=== PATIENT | male | born 1960 | race Caucasian/White ===

== ENCOUNTER 2024-03-02 21:28 | Inpatient (IN) ==
--- NOTE | 2024-03-02 22:26 | DR.HTN ---
HPI Time Seen Time Seen by Provider: 03/02/24 22:25 Primary Care Physician Primary Care Physician: SURESH NUNO (HERNANDEZ) Complaints Chief Complaint:: PT SENT BY PCP FOR ELEVATED BP AND CONTROL OF ALCOHOL DETOX SYMPTOMS. PT STATES HE DOUBLED BP MEDS AT HOME [employer] AND HAS NOT BEEN ABLE TO GET BP DOWN. PT ALERT ORIENTED AMB. NO SIGNS OF DISTRESS NOTED AT THIS TIME. Self Treatment fo Chief Complaint: BP MEDICATIONS COVID-19 Coronavirus risk:travel/contact w/high risk person: No Has patient experienced Coronavirus symptoms: No Source History Provided: Patient Mode of Arrival Mode of Arrival: Ambulatory Timing Onset of Chief Complaint: 03/02/24 Severity What was the maximum recorded B/P?: 214/110 Context Treatment of HTN Prior to Arrival: Taking meds as prescribed PMH PMH Past Medical History: Yes Past Medical History: Anxiety, Diabetes, Dyslipidemia, GERD and Hypertension Past Surgical History: Yes Surgical History: Cholecystectomy and Ortho Surgery Family History History of Family Medical Conditions: Yes Family Medical History: Hypertension Social History Alcohol Use: Heavy and DAILY Do you use any recreational Drugs:: No Lives With: Spouse Lives Where: Home Travel Risk Coronavirus risk:travel/contact w/high risk person: No Has patient experienced Coronavirus symptoms: No Infectious screening Have you traveled outside the country in the last 6 months?: No Isolation: Standard PE Vital Signs Vitals: Vital Signs Temperature 98.4 F Pulse Rate 80 Pulse Rate 83 Pulse Rate 83 Pulse Rate 83 Pulse Rate 80 Pulse Rate 76 Pulse Rate 72 Pulse Rate 74 Pulse Rate 72 Pulse Rate 73 Pulse Rate 77 Pulse Rate 76 Pulse Rate 77 Respiratory Rate 21 Respiratory Rate 18 Respiratory Rate 16 Respiratory Rate 19 Respiratory Rate 17 Respiratory Rate 16 Respiratory Rate 20 Respiratory Rate 18 Respiratory Rate 16 Respiratory Rate 15 Respiratory Rate 19 Respiratory Rate 21 Respiratory Rate 16 Blood Pressure 150/65 Blood Pressure 156/69 Blood Pressure 156/69 Blood Pressure 156/69 Blood Pressure 159/70 Blood Pressure 159/70 Blood Pressure 150/65 Blood Pressure 184/81 Blood Pressure 189/83 Blood Pressure 192/68 Blood Pressure 209/91 Blood Pressure 219/106 Blood Pressure 204/88 Blood Pressure 182/80 Blood Pressure 207/90 O2 Sat by Pulse Oximetry 99 O2 Sat by Pulse Oximetry 98 O2 Sat by Pulse Oximetry 97 O2 Sat by Pulse Oximetry 97 O2 Sat by Pulse Oximetry 98 O2 Sat by Pulse Oximetry 99 O2 Sat by Pulse Oximetry 98 O2 Sat by Pulse Oximetry 97 O2 Sat by Pulse Oximetry 98 O2 Sat by Pulse Oximetry 97 O2 Sat by Pulse Oximetry 97 O2 Sat by Pulse Oximetry 97 O2 Sat by Pulse Oximetry 95 ROR Labs Reviewed 03/02/24 21:50 03/02/24 21:50 Laboratory: WBC 5.3 X10^3/uL (3.6-10.0) 03/02/24 21:50 RBC 3.43 X10^6/uL (4.7-6.0) L 03/02/24 21:50 Hgb 11.7 g/dL (13.5-18.0) L 03/02/24 21:50 Hct 34.1 % (42.0-54.0) L 03/02/24 21:50 MCV 99.4 fL (80.0-100.0) 03/02/24 21:50 MCH 34.2 pg (27.0-34.0) H 03/02/24 21:50 MCHC 34.4 g/dL (33.0-35.0) 03/02/24 21:50 RDW 14.9 % (11.6-16.5) 03/02/24 21:50 Plt Count 163 X10^3/uL (150.0-450.0) 03/02/24 21:50 MPV 8.1 fL (7.4-11.0) 03/02/24 21:50 Neut % (Auto) 53.3 % (42.0-75.0) 03/02/24 21:50 Lymph % (Auto) 36.0 % (21.0-51.0) 03/02/24 21:50 [place] % (Auto) 5.5 % (0.0-13.0) 03/02/24 21:50 Eos % (Auto) 3.9 % (0.9-2.9) H 03/02/24 21:50 Baso % (Auto) 1.3 % (0.2-1.0) H 03/02/24 21:50 Neut # (Auto) 2.8 x10^3/uL (2.2-4.8) 03/02/24 21:50 Lymph # (Auto) 1.9 X10^3/uL (1.3-2.9) 03/02/24 21:50 [place] # (Auto) 0.3 x10^3/uL (0.3-0.8) 03/02/24 21:50 Eos # (Auto) 0.2 x10^3/uL (0.0-0.2) 03/02/24 21:50 Baso # (Auto) 0.1 X10^3/uL (0.0-0.1) 03/02/24 21:50 Absolute Nucleated RBC 0.4 /100WBC 03/02/24 21:50 Sodium 138 mmol/L (136-145) 03/02/24 21:50 Corrected Sodium 140 mmol/L (136-145) 03/02/24 21:50 Potassium 4.5 mmol/L (3.5-5.1) 03/02/24 21:50 Chloride 103 mmol/L (98-107) 03/02/24 21:50 Carbon Dioxide 24.3 mmol/L (21-32) 03/02/24 21:50 BUN 33 mg/dL (7-18) H 03/02/24 21:50 Creatinine 1.62 mg/dL (0.70-1.30) H 03/02/24 21:50 Est GFR (MDRD) Af Amer 55 (>60) L 03/02/24 21:50 Est GFR (MDRD) Non-Af 46 (>60) L 03/02/24 21:50 Glucose 187 mg/dL (65-99) H 03/02/24 21:50 Calcium 8.9 mg/dL (8.5-10.1) 03/02/24 21:50 Corrected Calcium TNP 03/02/24 21:50 Magnesium 1.9 mg/dL (2.0-2.9) L 03/02/24 21:50 Total Bilirubin 0.60 mg/dL (0.2-1.0) 03/02/24 21:50 AST 79 Units/L (15-37) H 03/02/24 21:50 ALT 102 Units/L (12-78) H 03/02/24 21:50 Alkaline Phosphatase 70 Units/L (46-116) 03/02/24 21:50 Total Protein 7.8 g/dL (6.4-8.2) 03/02/24 21:50 Albumin 4.0 g/dL (3.4-5.0) 03/02/24 21:50 Globulin 3.8 g/dL (2.5-4.5) 03/02/24 21:50 Albumin/Globulin Ratio 1.1 Ratio (1.1-2.1) 03/02/24 21:50 Ethyl Alcohol mg/dL < 3 mg/dL (0-19.9) 03/02/24 21:50 Opioid Opioid Risk Tool Age (Keyur box if 16-45): Yes History of Preadolescent Sexual Abuse: No Total: 1 Total Score Risk Category: Low Risk Copyright: Lance RAMIREZ predicting aberrant behaviors Discharge Plan Discharge Plan Patient Disposition: 01 HOME, SELF-CARE Condition: Stable Orders to Discharge Patient Discharge Orders: Transfer (Routine); Ordered 03/03/24 Ordered By: RAYMUNDO MILNER
[2024-03-02 22:34] LABS: ALANINE AMINOTRANSFERASE 102 Units/L (12-78); ALKALINE PHOSPHATASE 70 Units/L (46-116); ASPARTATE AMINO TRANSFERASE 79 Units/L (15-37); BASOPHILS # (AUTO) 0.1 X10^3/uL (0.0-0.1); BASOPHILS % (AUTO) 1.3 % (0.2-1.0); BLOOD UREA NITROGEN 33 mg/dL (7-18); CALCIUM 8.9 mg/dL (8.5-10.1); CARBON DIOXIDE 24.3 mmol/L (21-32); CHLORIDE 103 mmol/L (98-107); COR NA(FOR HYPERGLY) 140 mmol/L (136-145); CREATININE 1.62 mg/dL (0.70-1.30); EOSINOPHILS # (AUTO) 0.2 x10^3/uL (0.0-0.2); EOSINOPHILS % (AUTO) 3.9 % (0.9-2.9); GLUCOSE 187 mg/dL (65-99); HEMATOCRIT 34.1 % (42.0-54.0); HEMOGLOBIN 11.7 g/dL (13.5-18.0); LYMPHOCYTES # (AUTO) 1.9 X10^3/uL (1.3-2.9); MEAN CORPUSCULAR HEMOGLOBIN 34.2 pg (27.0-34.0); MEAN CORPUSCULAR HGB CONC 34.4 g/dL (33.0-35.0); MEAN CORPUSCULAR VOLUME 99.4 fL (80.0-100.0); MEAN PLATELET VOLUME 8.1 fL (7.4-11.0); MONOCYTES # (AUTO) 0.3 x10^3/uL (0.3-0.8); MONOCYTES % (AUTO) 5.5 % (0.0-13.0); NEUTROPHILS # (AUTO) 2.8 x10^3/uL (2.2-4.8); NEUTROPHILS % (AUTO) 53.3 % (42.0-75.0); PLATELET COUNT 163 X10^3/uL (150.0-450.0); POTASSIUM 4.5 mmol/L (3.5-5.1); RED BLOOD COUNT 3.43 X10^6/uL (4.7-6.0); RED CELL DISTRIBUTION WIDTH 14.9 % (11.6-16.5); SODIUM 138 mmol/L (136-145); TOTAL PROTEIN 7.8 g/dL (6.4-8.2); WHITE BLOOD COUNT 5.3 X10^3/uL (3.6-10.0); eGFR NON BLACK RACES 46 (>60)
[2024-03-02] MEDS: APRESOLINE INJ 20 MG VIAL IVP ONE ×2 (22:38→23:05)
[2024-03-02 22:41] LABS: BLOOD ALCOHOL < 3 mg/dL (0-19.9); MAGNESIUM 1.9 mg/dL (2.0-2.9)
[2024-03-02] MEDS: NS 1,000 ML IV 1,000 ML with MAGNESIUM SULFATE 50% INJ VIAL 1 G, MVI INJ (ADULT) 10 ML,... IV SCH (23:31)
[2024-03-02] MEDS: LIBRIUM PO ONE (23:54)
[2024-03-03 01:34] VITALS: BMI 27.1
[2024-03-03 04:30] LABS: BILIRUBIN,URINE NEGATIVE (NEGATIVE); BLOOD/HEMOGLOBIN,URINE NEGATIVE (NEGATIVE); GLUCOSE, URINE NEGATIVE (NEGATIVE); KETONES,URINE NEGATIVE (NEGATIVE); LEUKOCYTE ESTERASE ,URINE NEGATIVE (NEGATIVE); NITRITES,URINE NEGATIVE (NEGATIVE); PROTEIN,URINE NEGATIVE (NEGATIVE); UROBILINOGEN,URINE NORMAL (NORMAL)
[2024-03-03 04:34] LABS: APPEARANCE,URINE CLEAR (CLEAR); COLOR,URINE YELLOW (YELLOW)
[2024-03-03] MEDS: LIBRIUM PO SCH (05:18)
[2024-03-03 05:33] LABS: EOSINOPHILS # (AUTO) 0.3 x10^3/uL (0.0-0.2); EOSINOPHILS % (AUTO) 5.6 % (0.9-2.9); HEMATOCRIT 32.5 % (42.0-54.0); HEMOGLOBIN 11.2 g/dL (13.5-18.0); LYMPHOCYTES # (AUTO) 1.9 X10^3/uL (1.3-2.9); LYMPHOCYTES % (AUTO) 38.9 % (21.0-51.0); MEAN CORPUSCULAR HEMOGLOBIN 34.2 pg (27.0-34.0); MEAN CORPUSCULAR HGB CONC 34.3 g/dL (33.0-35.0); MEAN CORPUSCULAR VOLUME 99.5 fL (80.0-100.0); MEAN PLATELET VOLUME 8.4 fL (7.4-11.0); MONOCYTES # (AUTO) 0.3 x10^3/uL (0.3-0.8); MONOCYTES % (AUTO) 5.6 % (0.0-13.0); NEUTROPHILS # (AUTO) 2.4 x10^3/uL (2.2-4.8); NEUTROPHILS % (AUTO) 48.9 % (42.0-75.0); PLATELET COUNT 141 X10^3/uL (150.0-450.0); RED BLOOD COUNT 3.27 X10^6/uL (4.7-6.0); RED CELL DISTRIBUTION WIDTH 14.8 % (11.6-16.5); WHITE BLOOD COUNT 4.9 X10^3/uL (3.6-10.0)
[2024-03-03 05:54] LABS: ALANINE AMINOTRANSFERASE 90 Units/L (12-78); ALBUMIN 3.6 g/dL (3.4-5.0); ALKALINE PHOSPHATASE 59 Units/L (46-116); ASPARTATE AMINO TRANSFERASE 61 Units/L (15-37); BLOOD UREA NITROGEN 28 mg/dL (7-18); CALCIUM 8.7 mg/dL (8.5-10.1); CARBON DIOXIDE 26.2 mmol/L (21-32); CHLORIDE 104 mmol/L (98-107); COR NA(FOR HYPERGLY) 140 mmol/L (136-145); CREATININE 1.26 mg/dL (0.70-1.30); GLUCOSE 141 mg/dL (65-99); POTASSIUM 4.4 mmol/L (3.5-5.1); SODIUM 139 mmol/L (136-145); TOTAL PROTEIN 7.2 g/dL (6.4-8.2); eGFR NON BLACK RACES > 60 (>60)
[2024-03-03] MEDS ORDERED: MILK OF MAGNESIA PO PRN (08:59)
[2024-03-03] MEDS ORDERED: KAOPECTATE (NEW FORMULA) PO PRN (08:59)
[2024-03-03] MEDS ORDERED: MAALOX or MYLANTA PO PRN (08:59)
[2024-03-03] MEDS ORDERED: LIBRIUM PO PRN (08:59)
[2024-03-03] MEDS ORDERED: PHENOBARBITAL SODIUM INJ 65 MG VIAL IM PRN (08:59)
[2024-03-03] MEDS ORDERED: MOTRIN TAB 800 MG PO PRN (08:59)
[2024-03-03] MEDS ORDERED: THIAMINE HCL INJ IM SCH (09:00)
[2024-03-03 09:36] LABS: BASOPHILS # (AUTO) 0.1 X10^3/uL (0.0-0.1); BASOPHILS % (AUTO) 1.1 % (0.2-1.0); EOSINOPHILS # (AUTO) 0.3 x10^3/uL (0.0-0.2); HEMATOCRIT 35.6 % (42.0-54.0); HEMOGLOBIN 12.1 g/dL (13.5-18.0); LYMPHOCYTES # (AUTO) 1.5 X10^3/uL (1.3-2.9); LYMPHOCYTES % (AUTO) 30.3 % (21.0-51.0); MEAN CORPUSCULAR HEMOGLOBIN 34.2 pg (27.0-34.0); MEAN CORPUSCULAR VOLUME 100.7 fL (80.0-100.0); MONOCYTES # (AUTO) 0.2 x10^3/uL (0.3-0.8); MONOCYTES % (AUTO) 4.9 % (0.0-13.0); NEUTROPHILS # (AUTO) 2.8 x10^3/uL (2.2-4.8); NEUTROPHILS % (AUTO) 57.7 % (42.0-75.0); PLATELET COUNT 157 X10^3/uL (150.0-450.0); RED BLOOD COUNT 3.54 X10^6/uL (4.7-6.0); RED CELL DISTRIBUTION WIDTH 15.1 % (11.6-16.5); WHITE BLOOD COUNT 4.8 X10^3/uL (3.6-10.0)
[2024-03-03] MEDS: MAGNESIUM SULFATE 1 GRAM/100 mL PREMIX 1 G/100 ML BAG IV SCH (10:18)
[2024-03-03] MEDS: THIAMINE HCL INJ IVP SCH (10:18)
[2024-03-03] MEDS: PHENOBARBITAL TAB 30 MG (32.4MG) PO SCH (10:18)
[2024-03-03] MEDS: LOVENOX INJ 40 MG SYR SC SCH (10:19)
--- NOTE | 2024-03-03 10:37 | RAD ---
EXAMINATION:CHEST, PA/LAT ADULTHISTORY:SOB; .COMPARISON STUDY:11/19/2023TECHNIQUE:Two views of the chest are submitted for interpretation.FINDINGS:. The heart size is normal. The mediastinal structures are unremarkable. The lungs are clear. Costophrenic recesses are sharp. There are degenerative changes in the thoracic spine. There is no pneumothorax.IMPRESSION:NO ACUTE PROCESS.THIS IS AN ELECTRONICALLY VERIFIED FINAL REPORT03/03/2024 10:33 AM - Electronically signed by Amilcar Kraus MD
[2024-03-03] MEDS ORDERED: LEXAPRO ONE (12:13)
[2024-03-03] MEDS: LEXAPRO PO SCH (12:19)
[2024-03-03] MEDS: BENICAR PO SCH (12:19)
[2024-03-03] MEDS: NovoLIN R (or HumuLIN R) SUBCUT PRN (12:20)
--- NOTE | 2024-03-03 15:15 | DR.H&P ---
H&P History & Physical for Day of: H&P Date: 03/03/24 Chief Complaint Chief Complaint: Alcohol detoxification History of Present Illness History of Present Illness: This is a pleasant 64-year-old white male who comes in for alcohol detoxification. He has a long history of alcoholism as well as major depression. He has been drinking hard and heavy off and on for the last number of years. He has not been able to quit on his own at this time. His blood pressure has been up with systolic in the 200s. His nurse practitioner, Hood Longoria, called me in [place], [place]. She asked if I would mind admitting him, and I told her I would not. Given his blood pressure is slightly elevated, I said to her that we need to have him get to the emergency department to make sure that we can get this under control. Then, we will continue to do alcohol detox via the alcohol detox protocol. The patient does have a history of major depression, hypertension, anxiety, hypercholesteremia, osteoarthritis, acid reflux, and diabetes mellitus type 2. Past Medical History Past Medical History: Anxiety, Arthritis, Depression, Diabetes, Dyslipidemia, GERD and Hypertension Past Surgical History Surgical History: Cholecystectomy and Ortho Surgery Family History Family Medical History: Hypertension Social History Does patient currently use any type of tobacco product: No Type of Tobacco Use: None Does any household member use tobacco: No Alcohol Use: Heavy and DAILY Drug Use: None Medications Home Medications: Home Medications Medication Instructions Recorded Confirmed Type alprazolam 0.5 mg tablet (Xanax) 0.5 mg PO BID PRN 11/19/23 03/02/24 History lansoprazole 30 mg capsule,delayed 30 mg PO QDAY 11/19/23 03/02/24 History release metformin 500 mg tablet,extended 500 mg PO BID 11/19/23 03/02/24 History release 24 hr atorvastatin 20 mg tablet 20 mg PO QPM 01/25/24 03/02/24 History diclofenac sodium 75 mg 75 mg PO BID 01/25/24 03/02/24 History tablet,delayed release escitalopram oxalate 10 mg tablet 10 mg PO QDAY 01/25/24 03/02/24 History montelukast 10 mg tablet 10 mg PO QPM 01/25/24 03/02/24 History olmesartan 40 mg tablet 40 mg PO QDAY 04/27/24 06/03/24 History Allergies Allergies Allergy/AdvReac Type Severity Reaction Status Date / Time No Known Allergies Allergy Verified 03/02/24 22:05 Labs 03/03/24 09:22 03/03/24 04:05 Labs: Laboratory WBC 4.8 X10^3/uL (3.6-10.0) 03/03/24 09:22 RBC 3.54 X10^6/uL (4.7-6.0) L 03/03/24 09:22 Hgb 12.1 g/dL (13.5-18.0) L 03/03/24 09:22 Hct 35.6 % (42.0-54.0) L 03/03/24 09:22 MCV 100.7 fL (80.0-100.0) H 03/03/24 09:22 MCH 34.2 pg (27.0-34.0) H 03/03/24 09:22 MCHC 34.0 g/dL (33.0-35.0) 03/03/24 09:22 RDW 15.1 % (11.6-16.5) 03/03/24 09:22 Plt Count 157 X10^3/uL (150.0-450.0) 03/03/24 09:22 MPV 8.0 fL (7.4-11.0) 03/03/24 09:22 Neut % (Auto) 57.7 % (42.0-75.0) 03/03/24 09:22 Lymph % (Auto) 30.3 % (21.0-51.0) 03/03/24 09:22 [place] % (Auto) 4.9 % (0.0-13.0) 03/03/24 09:22 Eos % (Auto) 6.0 % (0.9-2.9) H 03/03/24 09:22 Baso % (Auto) 1.1 % (0.2-1.0) H 03/03/24 09:22 Neut # (Auto) 2.8 x10^3/uL (2.2-4.8) 03/03/24 09:22 Lymph # (Auto) 1.5 X10^3/uL (1.3-2.9) 03/03/24 09:22 [place] # (Auto) 0.2 x10^3/uL (0.3-0.8) L 03/03/24 09:22 Eos # (Auto) 0.3 x10^3/uL (0.0-0.2) H 03/03/24 09:22 Baso # (Auto) 0.1 X10^3/uL (0.0-0.1) 03/03/24 09:22 Absolute Nucleated RBC 0.1 /100WBC 03/03/24 09:22 Sodium 139 mmol/L (136-145) 03/03/24 04:05 Corrected Sodium 140 mmol/L (136-145) 03/03/24 04:05 Potassium 4.4 mmol/L (3.5-5.1) 03/03/24 04:05 Chloride 104 mmol/L (98-107) 03/03/24 04:05 Carbon Dioxide 26.2 mmol/L (21-32) 03/03/24 04:05 BUN 28 mg/dL (7-18) H 03/03/24 04:05 Creatinine 1.26 mg/dL (0.70-1.30) 03/03/24 04:05 Est GFR (MDRD) Af Amer > 60 (>60) 03/03/24 04:05 Est GFR (MDRD) Non-Af > 60 (>60) 03/03/24 04:05 Glucose 141 mg/dL (65-99) H 03/03/24 04:05 POC Glucose (mg/dL) 183 mg/dL (65-99) H 03/03/24 11:47 Calcium 8.7 mg/dL (8.5-10.1) 03/03/24 04:05 Corrected Calcium TNP 03/03/24 04:05 Magnesium 2.0 mg/dL (2.0-2.9) 03/03/24 04:05 Total Bilirubin 0.70 mg/dL (0.2-1.0) 03/03/24 04:05 AST 61 Units/L (15-37) H 03/03/24 04:05 ALT 90 Units/L (12-78) H 03/03/24 04:05 Alkaline Phosphatase 59 Units/L (46-116) 03/03/24 04:05 Total Protein 7.2 g/dL (6.4-8.2) 03/03/24 04:05 Albumin 3.6 g/dL (3.4-5.0) 03/03/24 04:05 Globulin 3.6 g/dL (2.5-4.5) 03/03/24 04:05 Albumin/Globulin Ratio 1.0 Ratio (1.1-2.1) L 03/03/24 04:05 Specimen Type Clean catch urine 03/03/24 04:08 Urine Color Yellow (YELLOW) 03/03/24 04:08 Urine Appearance Clear (CLEAR) 03/03/24 04:08 Urine pH 6.0 (5.0 - 8.0) 03/03/24 04:08 Ur Specific [place] 1.015 (1.000-1.030) 03/03/24 04:08 Urine Protein Negative (NEGATIVE) 03/03/24 04:08 Urine Glucose (UA) Negative (NEGATIVE) 03/03/24 04:08 Urine Ketones Negative (NEGATIVE) 03/03/24 04:08 Urine Blood Negative (NEGATIVE) 03/03/24 04:08 Urine Nitrite Negative (NEGATIVE) 03/03/24 04:08 Urine Bilirubin Negative (NEGATIVE) 03/03/24 04:08 Urine Urobilinogen Normal (NORMAL) 03/03/24 04:08 Ur Leukocyte Esterase Negative (NEGATIVE) 03/03/24 04:08 Ethyl Alcohol mg/dL < 3 mg/dL (0-19.9) 03/02/24 21:50 Review of Systems Constitutional: Weakness and Malaise Eyes: No Symptoms Reported ENT: No Symptoms Reported Respiratory: No Symptoms Reported Cardiovascular: No Symptoms Reported Gastrointestinal: Nausea; denies Diarrhea, Melena or Hematochezia Genitourinary: No Symptoms Reported Musculoskeletal: No Symptoms Reported Skin: No Symptoms Reported Neurological: Weakness Physical Exam Vital Signs: Vital Signs Temperature 97.6 F Pulse Rate 74 Pulse Rate 78 Pulse Rate 100 Blood Pressure 133/64 Blood Pressure 183/89 Blood Pressure 142/63 O2 Sat by Pulse Oximetry 97 O2 Sat by Pulse Oximetry 98 O2 Sat by Pulse Oximetry 97 Oriented: Normal, Time, Person and Place Eyes: Normal Ear: Normal Nose: Normal Throat: Normal Respiratory: Clear Throughout Cardiovascular: Normal : Normal Auscultation: Bowel Sounds: Normal Palpation: Normal Tenderness: Normal Skin: Normal Musculoskeletal: Normal Psychiatric: Anxiety and Depression Mood Description: Calm, Depressed, Flat, Sad and Anxious Affect: Anxious, Depressed and Flat Speech Pattern: Clear and Appropriate Assessment/Plan (1) Alcohol use disorder: Status: Acute Plan: Ethanol detox protocol. (2) Hypertension: Qualifiers: Hypertension type: primary hypertension Qualified Code(s): I10 - Essential (primary) hypertension Status: Acute Plan: Resume olmesartan 40 mg 1 p.o. daily. Monitor daily blood pressures. (3) Major depression: Status: Acute Plan: Continue E citalopram 10 mg 1 p.o. daily. I will see about getting the Viibryd ordered if we carry it here at the hospital pharmacy. (4) Nausea: Status: Acute Plan: Zofran as needed. (5) Diabetes mellitus type 2 in nonobese: Status: Acute Plan: Sliding scale regular insulin per protocol. We will hold off on the metformin since he is having nausea and some diarrhea now. (6) Dehydration: Status: Acute Plan: IV hydration. Review H&P Reviewed: Yes Patient was examined?: Yes
[2024-03-03] MEDS ORDERED: GLUCOPHAGE PO SCH (17:00)
[2024-03-03] MEDS: SNACK - Diabetic Appropriate PO SCH (20:10)
[2024-03-03] MEDS: SINGULAIR TAB 10 MG PO SCH (20:20)
[2024-03-03] MEDS: LIPITOR TAB 20 MG PO SCH (20:21)
[2024-03-03] MEDS ORDERED: THIAMINE HCL INJ ONE (20:26)
[2024-03-03] MEDS: AMBIEN PO SCH (20:32)
[2024-03-04] MEDS ORDERED: LEXAPRO ONE (08:39)
[2024-03-04] MEDS: PREVACID PO SCH (09:02)
[2024-03-04 09:38] LABS: BASOPHILS % (AUTO) 1.2 % (0.2-1.0); EOSINOPHILS # (AUTO) 0.2 x10^3/uL (0.0-0.2); EOSINOPHILS % (AUTO) 5.5 % (0.9-2.9); HEMATOCRIT 33.9 % (42.0-54.0); HEMOGLOBIN 11.5 g/dL (13.5-18.0); LYMPHOCYTES # (AUTO) 1.1 X10^3/uL (1.3-2.9); LYMPHOCYTES % (AUTO) 30.3 % (21.0-51.0); MEAN CORPUSCULAR HEMOGLOBIN 34.3 pg (27.0-34.0); MEAN CORPUSCULAR HGB CONC 34.1 g/dL (33.0-35.0); MEAN CORPUSCULAR VOLUME 100.7 fL (80.0-100.0); MEAN PLATELET VOLUME 7.8 fL (7.4-11.0); MONOCYTES # (AUTO) 0.2 x10^3/uL (0.3-0.8); MONOCYTES % (AUTO) 5.3 % (0.0-13.0); NEUTROPHILS # (AUTO) 2.1 x10^3/uL (2.2-4.8); NEUTROPHILS % (AUTO) 57.7 % (42.0-75.0); PLATELET COUNT 131 X10^3/uL (150.0-450.0); RED BLOOD COUNT 3.37 X10^6/uL (4.7-6.0); RED CELL DISTRIBUTION WIDTH 15.2 % (11.6-16.5); WHITE BLOOD COUNT 3.7 X10^3/uL (3.6-10.0)
[2024-03-04 10:13] LABS: ALANINE AMINOTRANSFERASE 104 Units/L (12-78); ALBUMIN 3.7 g/dL (3.4-5.0); ALKALINE PHOSPHATASE 56 Units/L (46-116); ASPARTATE AMINO TRANSFERASE 99 Units/L (15-37); BLOOD UREA NITROGEN 18 mg/dL (7-18); CALCIUM 8.8 mg/dL (8.5-10.1); CARBON DIOXIDE 27.9 mmol/L (21-32); CHLORIDE 104 mmol/L (98-107); COR NA(FOR HYPERGLY) 140 mmol/L (136-145); CREATININE 1.28 mg/dL (0.70-1.30); GLUCOSE 233 mg/dL (65-99); POTASSIUM 4.9 mmol/L (3.5-5.1); SODIUM 137 mmol/L (136-145); TOTAL PROTEIN 7.2 g/dL (6.4-8.2); eGFR NON BLACK RACES 60 (>60)
--- NOTE | 2024-03-04 16:34 | PCM.PROG ---
Progress Note Progress Note for Day of Date of Exam: 03/04/24 Subjective Subjective: The patient is resting comfortably this morning. He has had no acute problems since yesterday morning and none overnight. His labs look fairly well at this point. I see his LFTs are elevated. His blood pressure is much better and is 139/65 this afternoon. He is afebrile at this time and is tolerating the alcohol detox protocol at this time. He has no tremors and no shaking or no evidence of heart DTs this afternoon. Past Medical Family Social History Allergies: Allergies No Known Allergies Allergy (Verified 03/02/24 22:05) Review of Systems ROS: No change since H&P Vital Signs and I&O's Vital Signs: Vital Signs Temperature 98.5 F Temperature 97.7 F Pulse Rate 70 Pulse Rate 68 Respiratory Rate 18 Respiratory Rate 18 Blood Pressure 139/65 Blood Pressure 149/69 O2 Sat by Pulse Oximetry 97 O2 Sat by Pulse Oximetry 98 Intake and Output: Intake & Output 03/02/24 03/03/24 03/04/24 03/05/24 11:59 11:59 11:59 11:59 Intake Total 282 / 282 2088 Balance 282 / 282 2088 Physical Exam Oriented: Normal, Time, Person and Place Eyes: Normal Ear: Normal Nose: Normal Throat: Normal Respiratory: Normal Cardiovascular: Normal : Normal Auscultation: Bowel Sounds: Normal Tenderness: Normal Skin: Normal Musculoskeletal: Normal Psychiatric: Anxiety and Depression Mood Description: Calm, Depressed, Flat, Sad and Anxious Affect: Anxious, Depressed and Flat Speech Pattern: Clear and Appropriate Laboratory and Diagnostics 03/04/24 09:10 03/04/24 09:10 Labs: Laboratory WBC 3.7 X10^3/uL (3.6-10.0) 03/04/24 09:10 RBC 3.37 X10^6/uL (4.7-6.0) L 03/04/24 09:10 Hgb 11.5 g/dL (13.5-18.0) L 03/04/24 09:10 Hct 33.9 % (42.0-54.0) L 03/04/24 09:10 MCV 100.7 fL (80.0-100.0) H 03/04/24 09:10 MCH 34.3 pg (27.0-34.0) H 03/04/24 09:10 MCHC 34.1 g/dL (33.0-35.0) 03/04/24 09:10 RDW 15.2 % (11.6-16.5) 03/04/24 09:10 Plt Count 131 X10^3/uL (150.0-450.0) L 03/04/24 09:10 MPV 7.8 fL (7.4-11.0) 03/04/24 09:10 Neut % (Auto) 57.7 % (42.0-75.0) 03/04/24 09:10 Lymph % (Auto) 30.3 % (21.0-51.0) 03/04/24 09:10 [place] % (Auto) 5.3 % (0.0-13.0) 03/04/24 09:10 Eos % (Auto) 5.5 % (0.9-2.9) H 03/04/24 09:10 Baso % (Auto) 1.2 % (0.2-1.0) H 03/04/24 09:10 Neut # (Auto) 2.1 x10^3/uL (2.2-4.8) L 03/04/24 09:10 Lymph # (Auto) 1.1 X10^3/uL (1.3-2.9) L 03/04/24 09:10 [place] # (Auto) 0.2 x10^3/uL (0.3-0.8) L 03/04/24 09:10 Eos # (Auto) 0.2 x10^3/uL (0.0-0.2) 03/04/24 09:10 Baso # (Auto) 0.0 X10^3/uL (0.0-0.1) 03/04/24 09:10 Absolute Nucleated RBC 0.0 /100WBC 03/04/24 09:10 Sodium 137 mmol/L (136-145) 03/04/24 09:10 Corrected Sodium 140 mmol/L (136-145) 03/04/24 09:10 Potassium 4.9 mmol/L (3.5-5.1) 03/04/24 09:10 Chloride 104 mmol/L (98-107) 03/04/24 09:10 Carbon Dioxide 27.9 mmol/L (21-32) 03/04/24 09:10 BUN 18 mg/dL (7-18) 03/04/24 09:10 Creatinine 1.28 mg/dL (0.70-1.30) 03/04/24 09:10 Est GFR (MDRD) Af Amer > 60 (>60) 03/04/24 09:10 Est GFR (MDRD) Non-Af 60 (>60) 03/04/24 09:10 Glucose 233 mg/dL (65-99) H 03/04/24 09:10 POC Glucose (mg/dL) 202 mg/dL (65-99) H 03/04/24 16:14 Calcium 8.8 mg/dL (8.5-10.1) 03/04/24 09:10 Corrected Calcium TNP 03/04/24 09:10 Magnesium 2.0 mg/dL (2.0-2.9) 03/03/24 04:05 Total Bilirubin 0.60 mg/dL (0.2-1.0) 03/04/24 09:10 AST 99 Units/L (15-37) H 03/04/24 09:10 ALT 104 Units/L (12-78) H 03/04/24 09:10 Alkaline Phosphatase 56 Units/L (46-116) 03/04/24 09:10 Total Protein 7.2 g/dL (6.4-8.2) 03/04/24 09:10 Albumin 3.7 g/dL (3.4-5.0) 03/04/24 09:10 Globulin 3.5 g/dL (2.5-4.5) 03/04/24 09:10 Albumin/Globulin Ratio 1.1 Ratio (1.1-2.1) 03/04/24 09:10 Specimen Type Clean catch urine 03/03/24 04:08 Urine Color Yellow (YELLOW) 03/03/24 04:08 Urine Appearance Clear (CLEAR) 03/03/24 04:08 Urine pH 6.0 (5.0 - 8.0) 03/03/24 04:08 Ur Specific [place] 1.015 (1.000-1.030) 03/03/24 04:08 Urine Protein Negative (NEGATIVE) 03/03/24 04:08 Urine Glucose (UA) Negative (NEGATIVE) 03/03/24 04:08 Urine Ketones Negative (NEGATIVE) 03/03/24 04:08 Urine Blood Negative (NEGATIVE) 03/03/24 04:08 Urine Nitrite Negative (NEGATIVE) 03/03/24 04:08 Urine Bilirubin Negative (NEGATIVE) 03/03/24 04:08 Urine Urobilinogen Normal (NORMAL) 03/03/24 04:08 Ur Leukocyte Esterase Negative (NEGATIVE) 03/03/24 04:08 Ethyl Alcohol mg/dL < 3 mg/dL (0-19.9) 03/02/24 21:50 Radiology Reviewed: Yes Plan (1) Alcohol use disorder: Status: Acute Narrative Support Text: Improving. Plan: Ethanol detox protocol. (2) Hypertension: Status: Acute Qualifiers: Hypertension type: primary hypertension Qualified Code(s): I10 - Essential (primary) hypertension Narrative Support Text: Much improved. Plan: Resume olmesartan 40 mg 1 p.o. daily. Monitor daily blood pressures. (3) Major depression: Status: Acute Plan: Continue escitalopram 10 mg 1 p.o. daily. I will see about getting the Viibryd ordered if we carry it here at the hospital pharmacy. (4) Nausea: Status: Acute Plan: Zofran as needed. (5) Diabetes mellitus type 2 in nonobese: Status: Acute Plan: Sliding scale regular insulin per protocol. We will hold off on the metformin since he is having nausea and some diarrhea now. (6) Dehydration: Status: Acute Plan: IV hydration.
[2024-03-04] MEDS: ALPRAZOLAM ODT PO PRN (21:25)
[2024-03-05 05:39] LABS: BASOPHILS % (AUTO) 0.8 % (0.2-1.0); EOSINOPHILS # (AUTO) 0.2 x10^3/uL (0.0-0.2); HEMATOCRIT 31.6 % (42.0-54.0); HEMOGLOBIN 10.8 g/dL (13.5-18.0); LYMPHOCYTES # (AUTO) 1.6 X10^3/uL (1.3-2.9); LYMPHOCYTES % (AUTO) 36.6 % (21.0-51.0); MEAN CORPUSCULAR HEMOGLOBIN 34.3 pg (27.0-34.0); MEAN CORPUSCULAR HGB CONC 34.2 g/dL (33.0-35.0); MEAN CORPUSCULAR VOLUME 100.3 fL (80.0-100.0); MEAN PLATELET VOLUME 8.5 fL (7.4-11.0); MONOCYTES # (AUTO) 0.2 x10^3/uL (0.3-0.8); MONOCYTES % (AUTO) 5.6 % (0.0-13.0); NEUTROPHILS # (AUTO) 2.2 x10^3/uL (2.2-4.8); PLATELET COUNT 132 X10^3/uL (150.0-450.0); RED BLOOD COUNT 3.15 X10^6/uL (4.7-6.0); RED CELL DISTRIBUTION WIDTH 14.8 % (11.6-16.5); WHITE BLOOD COUNT 4.3 X10^3/uL (3.6-10.0)
[2024-03-05 05:49] LABS: ALANINE AMINOTRANSFERASE 101 Units/L (12-78); ALBUMIN 3.3 g/dL (3.4-5.0); ALKALINE PHOSPHATASE 55 Units/L (46-116); ASPARTATE AMINO TRANSFERASE 83 Units/L (15-37); BLOOD UREA NITROGEN 22 mg/dL (7-18); CALCIUM 8.3 mg/dL (8.5-10.1); CARBON DIOXIDE 28.3 mmol/L (21-32); CHLORIDE 105 mmol/L (98-107); COR CA(FOR HYPOALB) 8.9 mg/dL (8.5-10.1); COR NA(FOR HYPERGLY) 140 mmol/L (136-145); CREATININE 1.08 mg/dL (0.70-1.30); GLUCOSE 182 mg/dL (65-99); POTASSIUM 4.3 mmol/L (3.5-5.1); SODIUM 138 mmol/L (136-145); TOTAL PROTEIN 6.6 g/dL (6.4-8.2); eGFR NON BLACK RACES > 60 (>60)
[2024-03-05] MEDS ORDERED: LEXAPRO ONE (08:54)
[2024-03-05] MEDS: MAGNESIUM SULFATE 50% INJ VIAL ONE (14:18)
[2024-03-05] MEDS: NS 1,000 ML IV 1,000 ML ONE (14:19)
[2024-03-05] MEDS: MVI INJ (ADULT) IV ONE (14:19)
--- NOTE | 2024-03-05 21:27 | PCM.PROG ---
Progress Note Progress Note for Day of Date of Exam: 03/05/24 Subjective Subjective: The patient is resting comfortably this morning. He has had no acute problems since yesterday morning and none overnight. His labs look fairly well at this point. The patient's LFTs are continuing to normalize. They are still slightly elevated but have improved again since yesterday. His hemoglobin is down to 10.8; however, some of this is hemodilution. He states that he is not having too much shaking and jitteriness and has no nausea, vomiting, or diarrhea. He is currently on his fourth day, so we will continue to watch him and probably go ahead and try and discharge him tomorrow, as he should be out of the danger zone regarding alcoholic delirium tremens. Past Medical Family Social History Allergies: Allergies No Known Allergies Allergy (Verified 03/02/24 22:05) Review of Systems ROS: No change since H&P Vital Signs and I&O's Vital Signs: Vital Signs Temperature 98.1 F Temperature 97.7 F Pulse Rate 67 Pulse Rate 67 Respiratory Rate 22 Respiratory Rate 20 Blood Pressure 153/69 Blood Pressure 168/73 O2 Sat by Pulse Oximetry 95 O2 Sat by Pulse Oximetry 99 Intake and Output: Intake & Output 03/03/24 03/04/24 03/05/24 03/06/24 11:59 11:59 11:59 11:59 Intake Total 282 / 282 2088 3286 / 3286 1301 / 1301 Balance 282 / 282 2088 3286 / 3286 1301 / 1301 Physical Exam Oriented: Normal, Time, Person and Place Eyes: Normal Ear: Normal Nose: Normal Throat: Normal Respiratory: Normal Cardiovascular: Normal : Normal Auscultation: Bowel Sounds: Normal Tenderness: Normal Skin: Normal Musculoskeletal: Normal Psychiatric: Anxiety and Depression Mood Description: Calm, Depressed, Flat, Sad and Anxious Affect: Anxious, Depressed and Flat Speech Pattern: Clear and Appropriate Laboratory and Diagnostics 03/05/24 04:45 03/05/24 04:45 Labs: Laboratory WBC 4.3 X10^3/uL (3.6-10.0) 03/05/24 04:45 RBC 3.15 X10^6/uL (4.7-6.0) L 03/05/24 04:45 Hgb 10.8 g/dL (13.5-18.0) L 03/05/24 04:45 Hct 31.6 % (42.0-54.0) L 03/05/24 04:45 MCV 100.3 fL (80.0-100.0) H 03/05/24 04:45 MCH 34.3 pg (27.0-34.0) H 03/05/24 04:45 MCHC 34.2 g/dL (33.0-35.0) 03/05/24 04:45 RDW 14.8 % (11.6-16.5) 03/05/24 04:45 Plt Count 132 X10^3/uL (150.0-450.0) L 03/05/24 04:45 MPV 8.5 fL (7.4-11.0) 03/05/24 04:45 Neut % (Auto) 52.0 % (42.0-75.0) 03/05/24 04:45 Lymph % (Auto) 36.6 % (21.0-51.0) 03/05/24 04:45 [place] % (Auto) 5.6 % (0.0-13.0) 03/05/24 04:45 Eos % (Auto) 5.0 % (0.9-2.9) H 03/05/24 04:45 Baso % (Auto) 0.8 % (0.2-1.0) 03/05/24 04:45 Neut # (Auto) 2.2 x10^3/uL (2.2-4.8) 03/05/24 04:45 Lymph # (Auto) 1.6 X10^3/uL (1.3-2.9) 03/05/24 04:45 [place] # (Auto) 0.2 x10^3/uL (0.3-0.8) L 03/05/24 04:45 Eos # (Auto) 0.2 x10^3/uL (0.0-0.2) 03/05/24 04:45 Baso # (Auto) 0.0 X10^3/uL (0.0-0.1) 03/05/24 04:45 Absolute Nucleated RBC 0.1 /100WBC 03/05/24 04:45 Sodium 138 mmol/L (136-145) 03/05/24 04:45 Corrected Sodium 140 mmol/L (136-145) 03/05/24 04:45 Potassium 4.3 mmol/L (3.5-5.1) 03/05/24 04:45 Chloride 105 mmol/L (98-107) 03/05/24 04:45 Carbon Dioxide 28.3 mmol/L (21-32) 03/05/24 04:45 BUN 22 mg/dL (7-18) H 03/05/24 04:45 Creatinine 1.08 mg/dL (0.70-1.30) 03/05/24 04:45 Est GFR (MDRD) Af Amer > 60 (>60) 03/05/24 04:45 Est GFR (MDRD) Non-Af > 60 (>60) 03/05/24 04:45 Glucose 182 mg/dL (65-99) H 03/05/24 04:45 POC Glucose (mg/dL) 224 mg/dL (65-99) H 03/05/24 19:25 Calcium 8.3 mg/dL (8.5-10.1) L 03/05/24 04:45 Corrected Calcium 8.9 mg/dL (8.5-10.1) 03/05/24 04:45 Magnesium 2.3 mg/dL (2.0-2.9) 03/05/24 04:45 Total Bilirubin 0.30 mg/dL (0.2-1.0) 03/05/24 04:45 AST 83 Units/L (15-37) H 03/05/24 04:45 ALT 101 Units/L (12-78) H 03/05/24 04:45 Alkaline Phosphatase 55 Units/L (46-116) 03/05/24 04:45 Total Protein 6.6 g/dL (6.4-8.2) 03/05/24 04:45 Albumin 3.3 g/dL (3.4-5.0) L 03/05/24 04:45 Globulin 3.3 g/dL (2.5-4.5) 03/05/24 04:45 Albumin/Globulin Ratio 1.0 Ratio (1.1-2.1) L 03/05/24 04:45 Specimen Type Clean catch urine 03/03/24 04:08 Urine Color Yellow (YELLOW) 03/03/24 04:08 Urine Appearance Clear (CLEAR) 03/03/24 04:08 Urine pH 6.0 (5.0 - 8.0) 03/03/24 04:08 Ur Specific Pandora 1.015 (1.000-1.030) 03/03/24 04:08 Urine Protein Negative (NEGATIVE) 03/03/24 04:08 Urine Glucose (UA) Negative (NEGATIVE) 03/03/24 04:08 Urine Ketones Negative (NEGATIVE) 03/03/24 04:08 Urine Blood Negative (NEGATIVE) 03/03/24 04:08 Urine Nitrite Negative (NEGATIVE) 03/03/24 04:08 Urine Bilirubin Negative (NEGATIVE) 03/03/24 04:08 Urine Urobilinogen Normal (NORMAL) 03/03/24 04:08 Ur Leukocyte Esterase Negative (NEGATIVE) 03/03/24 04:08 Ethyl Alcohol mg/dL < 3 mg/dL (0-19.9) 03/02/24 21:50 Plan (1) Alcohol use disorder: Status: Acute Plan: Ethanol detox protocol. (2) Hypertension: Status: Acute Qualifiers: Hypertension type: primary hypertension Qualified Code(s): I10 - Essential (primary) hypertension Plan: Resume olmesartan 40 mg 1 p.o. daily. Monitor daily blood pressures. (3) Major depression: Status: Acute Plan: Continue escitalopram 10 mg 1 p.o. daily. I will see about getting the Viibryd ordered if we carry it here at the hospital pharmacy. (4) Nausea: Status: Acute Plan: Zofran as needed. (5) Diabetes mellitus type 2 in nonobese: Status: Acute Plan: Sliding scale regular insulin per protocol. We will hold off on the metformin since he is having nausea and some diarrhea now. (6) Dehydration: Status: Acute Plan: IV hydration.
[2024-03-06 06:26] LABS: BASOPHILS % (AUTO) 0.7 % (0.2-1.0); EOSINOPHILS # (AUTO) 0.2 x10^3/uL (0.0-0.2); EOSINOPHILS % (AUTO) 5.4 % (0.9-2.9); HEMATOCRIT 29.7 % (42.0-54.0); HEMOGLOBIN 10.3 g/dL (13.5-18.0); LYMPHOCYTES # (AUTO) 1.6 X10^3/uL (1.3-2.9); LYMPHOCYTES % (AUTO) 34.6 % (21.0-51.0); MEAN CORPUSCULAR HEMOGLOBIN 34.5 pg (27.0-34.0); MEAN CORPUSCULAR HGB CONC 34.5 g/dL (33.0-35.0); MEAN PLATELET VOLUME 8.8 fL (7.4-11.0); MONOCYTES # (AUTO) 0.3 x10^3/uL (0.3-0.8); MONOCYTES % (AUTO) 6.5 % (0.0-13.0); NEUTROPHILS # (AUTO) 2.4 x10^3/uL (2.2-4.8); NEUTROPHILS % (AUTO) 52.8 % (42.0-75.0); PLATELET COUNT 123 X10^3/uL (150.0-450.0); RED BLOOD COUNT 2.97 X10^6/uL (4.7-6.0); RED CELL DISTRIBUTION WIDTH 14.8 % (11.6-16.5); WHITE BLOOD COUNT 4.6 X10^3/uL (3.6-10.0)
[2024-03-06 06:31] LABS: ALANINE AMINOTRANSFERASE 114 Units/L (12-78); ALBUMIN 3.1 g/dL (3.4-5.0); ALKALINE PHOSPHATASE 52 Units/L (46-116); ASPARTATE AMINO TRANSFERASE 81 Units/L (15-37); BLOOD UREA NITROGEN 18 mg/dL (7-18); CALCIUM 8.2 mg/dL (8.5-10.1); CARBON DIOXIDE 27.1 mmol/L (21-32); CHLORIDE 105 mmol/L (98-107); COR CA(FOR HYPOALB) 8.9 mg/dL (8.5-10.1); COR NA(FOR HYPERGLY) 143 mmol/L (136-145); CREATININE 0.97 mg/dL (0.70-1.30); GLUCOSE 198 mg/dL (65-99); MAGNESIUM 1.9 mg/dL (2.0-2.9); POTASSIUM 4.4 mmol/L (3.5-5.1); SODIUM 141 mmol/L (136-145); TOTAL PROTEIN 6.3 g/dL (6.4-8.2); eGFR NON BLACK RACES > 60 (>60)
[2024-03-06] MEDS ORDERED: CONSULT PHARMACY - POTASSIUM & MAGNESIUM XX SCH (07:00)
[2024-03-06 08:34] LABS: RETICULOCYTE % 1.65 % (0.8-2.2)
[2024-03-06] MEDS: PROTONIX INJ 40 MG VIAL IVP SCH (10:13)
[2024-03-06] MEDS: PHENOBARBITAL TAB 15 MG (16.2MG) PO SCH (10:14)
[2024-03-06] MEDS: MAG-OX TAB PO SCH (10:14)
[2024-03-06] MEDS: LEXAPRO ONE (12:16)
[2024-03-06] MEDS ORDERED: MAG-OX TAB ONE (12:26)
--- NOTE | 2024-03-06 13:07 | PCM.PROG ---
Progress Note Progress Note for Day of Date of Exam: 03/06/24 Subjective Subjective: The patient is resting comfortably this morning. He has had no acute problems since yesterday morning and none overnight. The patient's hemoglobin has dropped down to 10.2 this morning, and I also see that his platelet counts have been dropping over the last few days. We checked a Hemoccult on him today, and it was negative. We also did an anemia panel, and his ferritin level was normal, as well as his B12 and folate. His iron level is normal at 92. His TIBC and transferrin are also normal. Some of the decreased hemoglobin count is from hemodilution, and the decreased platelet count could be secondary to the patient's recent history of chronic alcohol abuse. I will keep him another day and recheck his CBC in the morning to ensure his hemoglobin and platelet counts are stable. I am starting him on Protonix 40 mg IV twice daily. The exam reveals no abdominal tenderness and no epigastric tenderness on palpation today. Regarding the patient's alcohol use disorder and his current treatment using the alcohol detox protocol, he has had no delirium tremens, and he is not having any tremors. We are currently weaning him down on phenobarbital per protocol. The patient should be ready to be discharged home over the next 1 to 2 days. Past Medical Family Social History Allergies: Allergies No Known Allergies Allergy (Verified 03/02/24 22:05) Review of Systems ROS: No change since H&P Vital Signs and I&O's Vital Signs: Vital Signs Temperature 97.6 F Pulse Rate [Left] 77 Respiratory Rate 18 Blood Pressure [Right Arm] 115/56 O2 Sat by Pulse Oximetry 92 Intake and Output: Intake & Output 03/04/24 03/05/24 03/06/24 03/07/24 11:59 11:59 11:59 11:59 Intake Total 2088 3286 / 3286 2575 / 2575 Balance 2088 3286 / 3286 2575 / 2575 Physical Exam Oriented: Normal, Time, Person and Place Eyes: Normal Ear: Normal Nose: Normal Throat: Normal Respiratory: Normal Cardiovascular: Normal : Normal Auscultation: Bowel Sounds: Normal Tenderness: Normal Skin: Normal Musculoskeletal: Normal Psychiatric: Anxiety and Depression Mood Description: Calm, Depressed, Flat, Sad and Anxious Affect: Anxious, Depressed and Flat Speech Pattern: Clear and Appropriate Laboratory and Diagnostics 03/06/24 05:05 03/06/24 05:05 Labs: Laboratory WBC 4.6 X10^3/uL (3.6-10.0) 03/06/24 05:05 RBC 2.97 X10^6/uL (4.7-6.0) L 03/06/24 05:05 Hgb 10.3 g/dL (13.5-18.0) L 03/06/24 05:05 Hct 29.7 % (42.0-54.0) L 03/06/24 05:05 MCV 100.0 fL (80.0-100.0) 03/06/24 05:05 MCH 34.5 pg (27.0-34.0) H 03/06/24 05:05 MCHC 34.5 g/dL (33.0-35.0) 03/06/24 05:05 RDW 14.8 % (11.6-16.5) 03/06/24 05:05 Plt Count 123 X10^3/uL (150.0-450.0) L 03/06/24 05:05 MPV 8.8 fL (7.4-11.0) 03/06/24 05:05 Neut % (Auto) 52.8 % (42.0-75.0) 03/06/24 05:05 Lymph % (Auto) 34.6 % (21.0-51.0) 03/06/24 05:05 [place] % (Auto) 6.5 % (0.0-13.0) 03/06/24 05:05 Eos % (Auto) 5.4 % (0.9-2.9) H 03/06/24 05:05 Baso % (Auto) 0.7 % (0.2-1.0) 03/06/24 05:05 Neut # (Auto) 2.4 x10^3/uL (2.2-4.8) 03/06/24 05:05 Lymph # (Auto) 1.6 X10^3/uL (1.3-2.9) 03/06/24 05:05 [place] # (Auto) 0.3 x10^3/uL (0.3-0.8) 03/06/24 05:05 Eos # (Auto) 0.2 x10^3/uL (0.0-0.2) 03/06/24 05:05 Baso # (Auto) 0.0 X10^3/uL (0.0-0.1) 03/06/24 05:05 Absolute Nucleated RBC 0.6 /100WBC 03/06/24 05:05 Absolute Retic 0.0492 10^6/uL 03/06/24 05:05 Percent Retic 1.65 % (0.8-2.2) 03/06/24 05:05 Sodium 141 mmol/L (136-145) 03/06/24 05:05 Corrected Sodium 143 mmol/L (136-145) 03/06/24 05:05 Potassium 4.4 mmol/L (3.5-5.1) 03/06/24 05:05 Chloride 105 mmol/L (98-107) 03/06/24 05:05 Carbon Dioxide 27.1 mmol/L (21-32) 03/06/24 05:05 BUN 18 mg/dL (7-18) 03/06/24 05:05 Creatinine 0.97 mg/dL (0.70-1.30) 03/06/24 05:05 Est GFR (MDRD) Af Amer > 60 (>60) 03/06/24 05:05 Est GFR (MDRD) Non-Af > 60 (>60) 03/06/24 05:05 Glucose 198 mg/dL (65-99) H 03/06/24 05:05 POC Glucose (mg/dL) 200 mg/dL (65-99) H 03/06/24 11:37 Calcium 8.2 mg/dL (8.5-10.1) L 03/06/24 05:05 Corrected Calcium 8.9 mg/dL (8.5-10.1) 03/06/24 05:05 Magnesium 1.9 mg/dL (2.0-2.9) L 03/06/24 05:05 Iron 92 ug/dL (50-175) 03/06/24 05:05 TIBC 262 ug/dL (250-450) 03/06/24 05:05 Transferrin 203 mg/dL (202-364) 03/06/24 05:05 Ferritin 940 ng/mL (26-388) H 03/06/24 05:05 Total Bilirubin 0.20 mg/dL (0.2-1.0) 03/06/24 05:05 AST 81 Units/L (15-37) H 03/06/24 05:05 ALT 114 Units/L (12-78) H 03/06/24 05:05 Alkaline Phosphatase 52 Units/L (46-116) 03/06/24 05:05 Total Protein 6.3 g/dL (6.4-8.2) L 03/06/24 05:05 Albumin 3.1 g/dL (3.4-5.0) L 03/06/24 05:05 Globulin 3.2 g/dL (2.5-4.5) 03/06/24 05:05 Albumin/Globulin Ratio 1.0 Ratio (1.1-2.1) L 03/06/24 05:05 Vitamin B12 621 pg/mL (193-986) 03/06/24 05:05 Folate 11.7 ng/mL (>8.6) 03/06/24 05:05 Specimen Type Clean catch urine 03/03/24 04:08 Urine Color Yellow (YELLOW) 03/03/24 04:08 Urine Appearance Clear (CLEAR) 03/03/24 04:08 Urine pH 6.0 (5.0 - 8.0) 03/03/24 04:08 Ur Specific [place] 1.015 (1.000-1.030) 03/03/24 04:08 Urine Protein Negative (NEGATIVE) 03/03/24 04:08 Urine Glucose (UA) Negative (NEGATIVE) 03/03/24 04:08 Urine Ketones Negative (NEGATIVE) 03/03/24 04:08 Urine Blood Negative (NEGATIVE) 03/03/24 04:08 Urine Nitrite Negative (NEGATIVE) 03/03/24 04:08 Urine Bilirubin Negative (NEGATIVE) 03/03/24 04:08 Urine Urobilinogen Normal (NORMAL) 03/03/24 04:08 Ur Leukocyte Esterase Negative (NEGATIVE) 03/03/24 04:08 Stl Occult Blood (IFOB) Negative (NEGATIVE) 03/06/24 09:40 Ethyl Alcohol mg/dL < 3 mg/dL (0-19.9) 03/02/24 21:50 Plan (1) Normocytic anemia: Status: Acute Narrative Support Text: Currently unknown why the patient's hemoglobin has dropped from over 12 to over 10 this morning since admission. Some is hemodilution however the patient has had a negative Hemoccult. Anemia panel is within normal limits. Plan: Recheck CBC tomorrow. The patient has been started on Protonix 40 mg IV twice daily for GI protection. He may have had some underlying gastritis from chronic alcohol use, which could have led to him leaking some blood that just has not been detected by Hemoccult. (2) Thrombocytopenia: Status: Acute Narrative Support Text: I suspect the patient's thrombocytopenia could be secondary to some blood loss in the GI tract or either from chronic alcoholism. Patient has had a Hemoccult today and is negative. Plan: Recheck CBC tomorrow to see if the patient's platelet count is improving. (3) Alcohol use disorder: Status: Acute Plan: Continue alcohol detoxification protocol. The patient should be ready for discharge in the next 1 to 2 days. (4) Hypertension: Status: Chronic Qualifiers: Hypertension type: primary hypertension Qualified Code(s): I10 - Essential (primary) hypertension Plan: Resume olmesartan 40 mg 1 p.o. daily. Monitor daily blood pressures. 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 daily. The patient will need a prescription for Viibryd 10 mg 1 p.o. daily x 7 days at discharge and then 20 mg 1 p.o. daily thereafter. (6) Nausea: Status: Resolved Plan: Zofran as needed. (7) Diabetes mellitus type 2 in nonobese: Status: Chronic Plan: Sliding scale regular insulin per protocol. We will hold off on the metformin since he is having nausea and some diarrhea now. (8) Dehydration: Status: Resolved Plan: IV hydration.
[2024-03-06] MEDS: NS 1,000 ML IV 1,000 ML with MAGNESIUM SULFATE 50% INJ VIAL 1 G, MVI INJ (ADULT) 10 ML,... IV SCH (14:15)
[2024-03-06] MEDS ORDERED: NS 1,000 ML IV 1,000 ML with MAGNESIUM SULFATE 50% INJ VIAL 1 G, MVI INJ (ADULT) 10 ML,... IV SCH (15:00)
[2024-03-07 05:33] LABS: BASOPHILS % (AUTO) 0.6 % (0.2-1.0); EOSINOPHILS # (AUTO) 0.3 x10^3/uL (0.0-0.2); EOSINOPHILS % (AUTO) 5.1 % (0.9-2.9); HEMOGLOBIN 10.9 g/dL (13.5-18.0); LYMPHOCYTES # (AUTO) 1.5 X10^3/uL (1.3-2.9); LYMPHOCYTES % (AUTO) 31.4 % (21.0-51.0); MEAN CORPUSCULAR HEMOGLOBIN 34.2 pg (27.0-34.0); MEAN CORPUSCULAR HGB CONC 34.2 g/dL (33.0-35.0); MEAN PLATELET VOLUME 8.5 fL (7.4-11.0); MONOCYTES # (AUTO) 0.3 x10^3/uL (0.3-0.8); MONOCYTES % (AUTO) 6.6 % (0.0-13.0); NEUTROPHILS # (AUTO) 2.8 x10^3/uL (2.2-4.8); NEUTROPHILS % (AUTO) 56.3 % (42.0-75.0); PLATELET COUNT 131 X10^3/uL (150.0-450.0); RED CELL DISTRIBUTION WIDTH 14.9 % (11.6-16.5); WHITE BLOOD COUNT 4.9 X10^3/uL (3.6-10.0)
[2024-03-07 05:49] LABS: ALANINE AMINOTRANSFERASE 130 Units/L (12-78); ALBUMIN 3.4 g/dL (3.4-5.0); ALKALINE PHOSPHATASE 54 Units/L (46-116); ASPARTATE AMINO TRANSFERASE 75 Units/L (15-37); BLOOD UREA NITROGEN 16 mg/dL (7-18); CALCIUM 8.7 mg/dL (8.5-10.1); CHLORIDE 104 mmol/L (98-107); COR NA(FOR HYPERGLY) 142 mmol/L (136-145); CREATININE 0.97 mg/dL (0.70-1.30); GLUCOSE 183 mg/dL (65-99); MAGNESIUM 1.8 mg/dL (2.0-2.9); POTASSIUM 4.5 mmol/L (3.5-5.1); SODIUM 140 mmol/L (136-145); TOTAL PROTEIN 6.9 g/dL (6.4-8.2); eGFR NON BLACK RACES > 60 (>60)
[2024-03-07] MEDS ORDERED: CONSULT PHARMACY - POTASSIUM & MAGNESIUM XX SCH (07:00)
[2024-03-07] MEDS ORDERED: LEXAPRO ONE (08:33)
[2024-03-07] MEDS: MAG-OX TAB PO SCH (08:53)
[2024-03-07 12:04] VITALS: BP 143/64; PULSE 57; RESP 17; TEMP 97.3; O2SAT 99
[2024-03-07] MEDS ORDERED: NS IV SCH (14:00)
[2024-03-07] MEDS ORDERED: [UNRECOGNIZED DRUG - OTHER] IV SCH (14:00)
[2024-03-07] MEDS ORDERED: MAGNESIUM SULFATE IV SCH (14:00)
--- NOTE | 2024-03-10 10:31 | W.DIS.FURT ---
Summary of Discharge Discharge Summary of Date Date of Exam: 03/07/24 Admission Date Date of Admission: 03/03/24 Admission Diagnosis Hospital Course: Mr Hicks is a 64y/o male with a PMH of alcoholism, depression, anxiety, HTN, HLD, GERD and diabetes was admitted for alcohol detox and elevated blood pressure. Patient has a long hx of ETOH use. He was started on detox protocol. His labs were monitored daily and electrolytes replaced as needed. Patient did not experience any DTs or tremors. His BP also improved. He was ambulating in the room. He did have anemia and thrombocytopenia. Denied any active bleeding. FOB was negative. His hgb and platelet count was monitored. He was stable to be discharged home. He will f/u with PCP as scheduled. Vital Signs: Vital Signs (72 hours) 03/04/24 12:00 03/04/24 16:00 03/04/24 19:00 Temperature 97.7 F 98.5 F Pulse Rate 68 70 Pulse Rate [Left] Respiratory Rate 18 18 Blood Pressure 149/69 139/65 Blood Pressure [Right Arm] O2 Sat by Pulse Oximetry 98 97 Oxygen Delivery Method Room Air Room Air Room Air 03/04/24 20:00 03/05/24 00:00 03/04/24 21:35 Temperature 98.1 F 97.8 F Pulse Rate 69 54 L Pulse Rate [Left] Respiratory Rate 20 18 Blood Pressure 169/75 120/57 Blood Pressure [Right Arm] O2 Sat by Pulse Oximetry 97 95 Oxygen Delivery Method Room Air Room Air Room Air 03/05/24 04:00 03/05/24 07:00 03/05/24 08:00 Temperature 98 F 97.8 F Pulse Rate 56 L 74 Pulse Rate [Left] Respiratory Rate 20 18 Blood Pressure 108/56 158/76 Blood Pressure [Right Arm] O2 Sat by Pulse Oximetry 95 95 Oxygen Delivery Method Room Air Room Air Room Air 03/05/24 12:00 03/05/24 16:00 03/05/24 19:00 Temperature 98.6 F 97.7 F Pulse Rate 61 67 Pulse Rate [Left] Respiratory Rate 20 20 Blood Pressure 159/75 168/73 Blood Pressure [Right Arm] O2 Sat by Pulse Oximetry 97 99 Oxygen Delivery Method Room Air Room Air Room Air 03/05/24 20:00 03/06/24 00:00 03/05/24 21:00 Temperature 98.1 F 98.1 F Pulse Rate 67 70 Pulse Rate [Left] Respiratory Rate 22 20 Blood Pressure 153/69 136/63 Blood Pressure [Right Arm] O2 Sat by Pulse Oximetry 95 94 L Oxygen Delivery Method Room Air Room Air Room Air 03/06/24 04:00 03/06/24 08:00 03/06/24 12:00 Temperature 98.0 F 97.6 F 97.4 F L Pulse Rate 68 Pulse Rate [Left] 77 97 H Respiratory Rate 20 18 18 Blood Pressure 118/60 Blood Pressure [Right Arm] 115/56 161/76 O2 Sat by Pulse Oximetry 95 92 L 98 Oxygen Delivery Method Room Air Room Air Room Air 03/06/24 16:00 03/06/24 07:00 03/06/24 19:42 Temperature 97.8 F 98 F Pulse Rate Pulse Rate [Left] 69 68 Respiratory Rate 18 20 Blood Pressure Blood Pressure [Right Arm] 173/77 140/62 O2 Sat by Pulse Oximetry 99 96 Oxygen Delivery Method Room Air Room Air Room Air 03/06/24 19:00 03/06/24 23:31 03/06/24 20:05 Temperature 97.5 F L Pulse Rate Pulse Rate [Left] 70 Respiratory Rate 20 Blood Pressure Blood Pressure [Right Arm] 180/85 O2 Sat by Pulse Oximetry 100 Oxygen Delivery Method Room Air Room Air Room Air 03/07/24 04:00 03/07/24 08:00 03/07/24 07:00 Temperature 97.5 F L 97.0 F L Pulse Rate Pulse Rate [Left] 64 76 Respiratory Rate 20 18 Blood Pressure Blood Pressure [Right Arm] 170/74 136/63 O2 Sat by Pulse Oximetry 96 96 Oxygen Delivery Method Room Air Room Air Room Air Labs: Laboratory Last Values WBC 4.9 X10^3/uL (3.6-10.0) 03/07/24 05:00 RBC 3.20 X10^6/uL (4.7-6.0) L 03/07/24 05:00 Hgb 10.9 g/dL (13.5-18.0) L 03/07/24 05:00 Hct 32.0 % (42.0-54.0) L 03/07/24 05:00 MCV 100.0 fL (80.0-100.0) 03/07/24 05:00 MCH 34.2 pg (27.0-34.0) H 03/07/24 05:00 MCHC 34.2 g/dL (33.0-35.0) 03/07/24 05:00 RDW 14.9 % (11.6-16.5) 03/07/24 05:00 Plt Count 131 X10^3/uL (150.0-450.0) L 03/07/24 05:00 MPV 8.5 fL (7.4-11.0) 03/07/24 05:00 Neut % (Auto) 56.3 % (42.0-75.0) 03/07/24 05:00 Lymph % (Auto) 31.4 % (21.0-51.0) 03/07/24 05:00 [place] % (Auto) 6.6 % (0.0-13.0) 03/07/24 05:00 Eos % (Auto) 5.1 % (0.9-2.9) H 03/07/24 05:00 Baso % (Auto) 0.6 % (0.2-1.0) 03/07/24 05:00 Neut # (Auto) 2.8 x10^3/uL (2.2-4.8) 03/07/24 05:00 Lymph # (Auto) 1.5 X10^3/uL (1.3-2.9) 03/07/24 05:00 [place] # (Auto) 0.3 x10^3/uL (0.3-0.8) 03/07/24 05:00 Eos # (Auto) 0.3 x10^3/uL (0.0-0.2) H 03/07/24 05:00 Baso # (Auto) 0.0 X10^3/uL (0.0-0.1) 03/07/24 05:00 Absolute Nucleated RBC 0.2 /100WBC 03/07/24 05:00 Absolute Retic 0.0492 10^6/uL 03/06/24 05:05 Percent Retic 1.65 % (0.8-2.2) 03/06/24 05:05 Sodium 140 mmol/L (136-145) 03/07/24 05:00 Corrected Sodium 142 mmol/L (136-145) 03/07/24 05:00 Potassium 4.5 mmol/L (3.5-5.1) 03/07/24 05:00 Chloride 104 mmol/L (98-107) 03/07/24 05:00 Carbon Dioxide 30.0 mmol/L (21-32) 03/07/24 05:00 BUN 16 mg/dL (7-18) 03/07/24 05:00 Creatinine 0.97 mg/dL (0.70-1.30) 03/07/24 05:00 Est GFR (MDRD) Af Amer > 60 (>60) 03/07/24 05:00 Est GFR (MDRD) Non-Af > 60 (>60) 03/07/24 05:00 Glucose 183 mg/dL (65-99) H 03/07/24 05:00 POC Glucose (mg/dL) 192 mg/dL (65-99) H 03/07/24 11:13 Calcium 8.7 mg/dL (8.5-10.1) 03/07/24 05:00 Corrected Calcium TNP 03/07/24 05:00 Magnesium 1.8 mg/dL (2.0-2.9) L 03/07/24 05:00 Iron 92 ug/dL (50-175) 03/06/24 05:05 TIBC 262 ug/dL (250-450) 03/06/24 05:05 Transferrin 203 mg/dL (202-364) 03/06/24 05:05 Ferritin 940 ng/mL (26-388) H 03/06/24 05:05 Total Bilirubin 0.30 mg/dL (0.2-1.0) 03/07/24 05:00 AST 75 Units/L (15-37) H 03/07/24 05:00 ALT 130 Units/L (12-78) H 03/07/24 05:00 Alkaline Phosphatase 54 Units/L (46-116) 03/07/24 05:00 Total Protein 6.9 g/dL (6.4-8.2) 03/07/24 05:00 Albumin 3.4 g/dL (3.4-5.0) 03/07/24 05:00 Globulin 3.5 g/dL (2.5-4.5) 03/07/24 05:00 Albumin/Globulin Ratio 1.0 Ratio (1.1-2.1) L 03/07/24 05:00 Vitamin B12 621 pg/mL (193-986) 03/06/24 05:05 Folate 11.7 ng/mL (>8.6) 03/06/24 05:05 Specimen Type Clean catch urine 03/03/24 04:08 Urine Color Yellow (YELLOW) 03/03/24 04:08 Urine Appearance Clear (CLEAR) 03/03/24 04:08 Urine pH 6.0 (5.0 - 8.0) 03/03/24 04:08 Ur Specific [place] 1.015 (1.000-1.030) 03/03/24 04:08 Urine Protein Negative (NEGATIVE) 03/03/24 04:08 Urine Glucose (UA) Negative (NEGATIVE) 03/03/24 04:08 Urine Ketones Negative (NEGATIVE) 03/03/24 04:08 Urine Blood Negative (NEGATIVE) 03/03/24 04:08 Urine Nitrite Negative (NEGATIVE) 03/03/24 04:08 Urine Bilirubin Negative (NEGATIVE) 03/03/24 04:08 Urine Urobilinogen Normal (NORMAL) 03/03/24 04:08 Ur Leukocyte Esterase Negative (NEGATIVE) 03/03/24 04:08 Stl Occult Blood (IFOB) Negative (NEGATIVE) 03/06/24 09:40 Ethyl Alcohol mg/dL < 3 mg/dL (0-19.9) 03/02/24 21:50 Reason For Visit: ALCHOL WITHDRAWAL, ALCHOL DEPENDENCY Discharge Diagnosis All Active Problems (Updated 03/06/24 @ 13:06 by Dileep Pepper) Thrombocytopenia (Acute) Normocytic anemia (Acute) Diabetes mellitus type 2 in nonobese (Chronic) Major depression (Chronic) Alcohol use disorder (Acute) Hypertension (Chronic) Alcohol intoxication (Acute) Acute pain of left shoulder (Acute) Contusion of scalp (Acute) Acute hyperkalemia (Acute) Diarrhea (Acute) Plan of Treatment: Continue with present treatment and follow up plan. Pt is to keep follow up appointment as instructed and take medications as ordered. Discharge Medications Discharge Medications: No Known Allergies Allergy (Verified 03/02/24 22:05) New Prescriptions chlordiazepoxide HCl 25 mg capsule 25 mg PO TID 5 days #15 caps 03/07/24 [Rx] Discharge Disposition Discharge Disposition: Home Discharge Condition: Stable Discharge Plan Discharge Plan Hospital Course: Mr Hicks is a 64y/o male with a PMH of alcoholism, depression, anxiety, HTN, HLD, GERD and diabetes was admitted for alcohol detox and elevated blood pressure. Patient has a long hx of ETOH use. He was started on detox protocol. His labs were monitored daily and electrolytes replaced as needed. Patient did not experience any DTs or tremors. His BP also improved. He was ambulating in the room. He did have anemia and thrombocytopenia. Denied any active bleeding. FOB was negative. His hgb and platelet count was monitored. He was stable to be discharged home. He will f/u with PCP as scheduled. Patient Disposition: HOME, SELF-CARE Condition: Stable Health Concerns: Post Hospitalization: new medications and changes needed to prevent readmission or further decline. Pt educated and given instructions on all concerns. Care Plan Goals: Problem: Pain/Alteration in Comfort Goal: Improve/ Resolve Pain; Achieve Pain Tolerance Instructions: Take pain medications as prescribed. Contact your primary care provider if your pain is unrelieved or worsens. Follow up with primary care provider as directed. Plan of Treatment: Continue with present treatment and follow up plan. Pt is to keep follow up appointment as instructed and take medications as ordered. Prescription drug monitoring program results: PDMP reviewed and no concerns identified Prescriptions: New chlordiazepoxide HCl 25 mg Capsule 25 mg PO TID MDD 3 5 Days Qty: 15 0RF Continued lansoprazole 30 mg capsule,delayed release(DR/EC) 30 mg PO QDAY metformin 500 mg tablet extended release 24 hr 500 mg PO BID atorvastatin 20 mg tablet 20 mg PO QPM diclofenac sodium 75 mg tablet,delayed release (DR/EC) 75 mg PO BID montelukast 10 mg tablet 10 mg PO QPM olmesartan 40 mg tablet 40 mg PO QDAY escitalopram oxalate 10 mg tablet 10 mg PO QDAY Discontinued alprazolam [Xanax] 0.5 mg tablet 0.5 mg PO BID PRN Follow ups/Referrals Follow ups/Referrals: SURESH NUNO [Primary Care Provider] - 3 days Instructions Instructions: Binge-Drinking Information, Adult, Alcohol Intoxication, [id number], Nausea and Vomiting, Adult, [id number], Dehydration, Older Adult, [id number] Activity Restrictions/Additional Instructions: DO NOT TAKE XANAX WHILE TAKING LIBRIUM. FINISH LIBRIUM FOR 5 DAYS. Stand Alone Forms: Excuse From Work or School, Post Hospital Follow Up Care
== END 2024-03-07 12:25 | disposition home or self-care (01) | DRG 897 ==
LOC: ER 21:28 → ICU 03-03 00:36 → MED/SURG 03-05 12:31
PROVIDERS: ADMIT Family Medicine; ATTEND Family Medicine
DX: F10.239 Alcohol dependence with withdrawal, unspecified; E86.0 Dehydration; I10 Essential (primary) hypertension; R94.5 Abnormal results of liver function studies; F33.2 Major depressive disorder, recurrent severe without psychotic features; K21.9 Gastro-esophageal reflux disease without esophagitis; E11.65 Type 2 diabetes mellitus with hyperglycemia; D64.89 Other specified anemias; E78.5 Hyperlipidemia, unspecified; R06.02 Shortness of breath